=== PATIENT | female | born 1985 | race Caucasian/White ===

== ENCOUNTER → 2016-12-31 | Outpatient (CLI) | payer BC | END | disposition home or self-care (01) | LOC: PTH.S 12-19 10:30 | DX: D30.00 Benign neoplasm of unspecified kidney (principal); D17.71 Benign lipomatous neoplasm of kidney; I10 Essential (primary) hypertension; N83.202 Unspecified ovarian cyst, left side; N83.201 Unspecified ovarian cyst, right side ==